=== PATIENT | male | born 1990 | race Caucasian/White ===

== ENCOUNTER 2017-02-19 19:18 | Emergency (ER) | payer MEDICAID ==
--- NOTE | 2017-02-20 06:43 | ED ---
Mary Landry Edward, scribed for Chapis Matias MD on 02/19/17 at 1926 . Substance Abuse/Use - HPI Summary HPI Summary: 26 y/o M brought in S w/ c/o heroin overdose. Patient was given nasal narcan by police. Patient states that he was recently sober (on and off) for around 4 months until relapsing today at 18:30. Patient states he feels fine now, other than "feeling ashamed" for relapsing. He notes no SI. Patient was using heroin for a couple of years before the 4-month sober period. During his sober period, patient took part in the [facility] in [place], [place]. Patient lives with his girlfriend and is a current smoker. No FHx of Diabetes. - History Of Current Complaint Chief Complaint: EDSubstanceAbuse Stated Complaint: OVERDOSE Time Seen by Provider: 02/19/17 19:20 Hx Obtained From: Patient Onset/Duration of Drug/ETOH Abuse: Hours - Relapse today at 18:30. Using for years prior to recent 4 month sober period Ingestion History: Type/Name Of Drug - Heroin, Approximate Time Of Ingestion - 18:30 Overdose Characteristics: IV Associated Signs And Symptoms: Other: - "Feels ashamed". No SI - Allergies/Home Medications Allergies/Adverse Reactions: Allergies Allergy/AdvReac Type Severity Reaction Status Date / Time No Known Allergies Allergy Verified 02/19/17 19:33 PMH/Surg Hx/FS Hx/Imm Hx Previously Healthy: No Sensory History: Denies: Hx Deafness Opthamlomology History: Denies: Hx Legally Blind Infectious Disease History: Denies: Traveled Outside the [place] in Last 30 Days - Family History Known Family History: Negative: Diabetes - Social History Lives: With Family - With girlfriend Hx Tobacco Use: Yes Smoking Status (MU): Smoker, Current Status Unknown Type: Cigarettes Review of Systems Constitutional: Negative Eyes: Negative ENT: Negative Cardiovascular: Negative Respiratory: Negative Gastrointestinal: Negative Genitourinary: Negative Musculoskeletal: Negative Skin: Negative Neurological: Negative Psychological: Other - "Feels ashamed". No SI All Other Systems Reviewed And Are Negative: Yes Physical Exam Triage Information Reviewed: Yes Vital Signs On Initial Exam: Initial Vitals Temp Pulse Resp BP Pulse Ox 98.0 F 80 16 133/78 100 02/19/17 19:19 02/19/17 19:19 02/19/17 19:19 02/19/17 19:19 02/19/17 19:19 Vital Signs Reviewed: Yes Appearance: Positive: Well-Appearing, No Pain Distress Skin: Positive: Warm, Skin Color Reflects Adequate Perfusion, Dry Eyes: Positive: EOMI, ROSALINO ENT: Positive: Pharynx normal, TMs normal Neck: Positive: Supple, Nontender Respiratory/Lung Sounds: Positive: Clear to Auscultation, Breath Sounds Present. Negative: Rales, Rhonchi, Wheezes Cardiovascular: Positive: RRR, Other - No gallop. Negative: Murmur, Rub Abdomen Description: Positive: Nontender, Soft, Other: - No rebound. Negative: Distended, Guarding Bowel Sounds: Positive: Present Musculoskeletal: Positive: Strength/ROM Intact. Negative: Edema Left, Edema Right Neurological: Positive: Sensory/Motor Intact, Alert, Oriented to Person Place, Time, CN Intact II-III Psychiatric: Positive: Affect/Mood Appropriate Diagnostics - Vital Signs Vital Signs Temp Pulse Resp BP Pulse Ox 02/19/17 19:19 98.0 F 80 16 133/78 100 - Laboratory Lab Statement: Any lab studies that have been ordered have been reviewed, and results considered in the medical decision making process. Course/Dx - Course Course Of Treatment: pt remained alert during his entire visit - Diagnoses Provider Diagnoses: Overdose Discharge - Discharge Plan Condition: Stable Disposition: HOME Patient Education Materials: Adult Overdose (ED) Referrals: [facility] [Outside] - 3 Days (Follow up in 2-3 days please. ) The documentation as recorded by the Mary ashley Edward accurately reflects the service I personally performed and the decisions made by Florencio bearden Justine, MD.
== END 2017-02-19 20:28 | disposition home or self-care (01) ==
LOC: ED 19:18
DX: T40.1X4A Poisoning by heroin, undetermined, initial encounter (principal); Y92.9 Unspecified place or not applicable; F17.210 Nicotine dependence, cigarettes, uncomplicated
CPT/HCPCS: 99281